=== PATIENT | female | born 1955 | race African-American/Black ===

== ENCOUNTER 2017-03-18 09:50 | Emergency (ER) | payer BC ==
[~2017-03-18] VITALS: Ht 167.6 cm; Wt 87.1 kg
[~2017-03-18 09:50] MED LIST: ACETAMINOPHEN-1 EAC1 PO; ALEVE220 MG PO; ATORVASTATIN CA40 MG PO; BACTRIM DS TAB1 EACH PO; FLEXERIL PO; IBUPROFEN 600600 M1 PO; IBUPROFEN 800800 M1; IBUPROFEN 800800 MG PO; LEVOTHYROXIN0.125 M1 PO; MOBIC7.5 MG PO; NITROGLYCERIN0.4 MG SL; NOHOMEMEDICATIONS; NORCO 5-325 TA1 EACH PO; RESTASIS1 EACH OPHTHALMIC; TRAMADOL 50 MG50 MG PO; ULTRACET TABLET1 TAB PO; VALIUM2 MG PO; ZOCOR 10 MG TAB10 MG
[2017-03-18] MEDS ORDERED: ANTIVERT25 MG PO (10:58)
[2017-03-18] MEDS ORDERED: ZOFRAN ODT4 MG PO (10:58)
[2017-03-18] MEDS ORDERED: MOBIC7.5 MG PO (11:11)
[2017-03-18] MEDS ORDERED: TOBRADEX ST EYE5 ML OPHTHALMIC (11:13)
[2017-03-18] MEDS ORDERED: AZELASTINE HCL6 ML OPHTHALMIC (11:15)
[2017-03-18] MEDS ORDERED: PATANOL5 ML OPHTHALMIC (11:15)
== END 2017-03-18 12:00 | disposition home or self-care (01) ==
LOC: ER 09:50
DX: R42 Dizziness and giddiness (principal); H65.92 Unspecified nonsuppurative otitis media, left ear; Z98.890 Other specified postprocedural states; Z88.5 Allergy status to narcotic agent